=== PATIENT | male | born 1945 | race Caucasian/White ===

== ENCOUNTER 2017-10-03 12:29 | Outpatient (CLI) | payer MEDICARE | END 2017-10-03 12:30 | disposition home or self-care (01) | LOC: BICRAD 12:29 | PROVIDERS: ATTEND Family Medicine | DX: R07.9 Chest pain, unspecified (principal) | CPT/HCPCS: 71020 ==

== ENCOUNTER 2021-10-27 16:28 | Emergency (ER) | payer MEDICARE | END 2021-10-27 19:21 | disposition left against medical advice (07) | LOC: ERS 16:28 | DX: Z53.21 Procedure and treatment not carried out due to patient leaving prior to being seen by health care provider (principal) ==

== ENCOUNTER 2021-11-02 11:22 | Inpatient (IN) | payer MEDICARE, OTHER ==
[2021-11-02 12:30] LABS: Hemoglobin 9.6 g/dL (14.0-18.0); Mean Corpuscular HGB CONC 32.5 g/dL (32.0-36.0); Mean Corpuscular Hemoglobin 32.6 pg (27.0-31.0); Mean Platelet Volume 9.9 fL (7.4-10.4); Platelet Count 161 thou/uL (130-400); Red Blood Cell (RBC) Count 2.94 mill/uL (4.70-6.10); White Blood Cell (WBC) Count 2.6 thou/uL (4.8-10.8)
[2021-11-02] MEDS ORDERED: Ondansetron PF 4 MG/2 ML Vial ONE (12:35)
[2021-11-02 12:50] LABS: Band 52 % (5-11); Bite Cells SLIGHT = 2-5 cells (100X) (0-1/hpf); Eosinophils 2 % (0-10); Lymphocytes 10 % (21-51); MDiff Complete? YES; Monocytes 14 % (0-10); Neutrophil 20 % (42-75); Platelet Morphology Comment Appears Adequate; Polychromasia SLIGHT = 2-3 cells (100X) (0-2/hpf); Reactive Lymphocytes 2 % (0-10); Schistocytes SLIGHT = 2-5 cells (100X) (0-1/hpf)
[2021-11-02 13:46] LABS: ALT (SGPT) 7 U/L (8-55); AST (SGOT) 12 U/L (5-34); Albumin 2.9 g/dL (3.4-4.8); Alkaline Phosphatase 84 U/L (40-110); Anion Gap 19 mmol/L (10-20); BUN (Urea Nitrogen) 48 mg/dL (8.4-25.7); Bilirubin, Total 0.9 mg/dL (0.2-1.2); Calc. Creatinine Clearance 0 mL/min (70-130); Calcium 9.1 mg/dL (7.8-10.44); Carbon Dioxide 10 mmol/L (23-31); Chloride 109 mmol/L (98-107); Globulin 3.3 g/dL (2.4-3.5); Glucose 135 mg/dL (83-110); Lipase 14 U/L (8-78); Protein, Total 6.2 g/dL (5.8-8.1); Sodium 136 mmol/L (136-145)
[2021-11-02 13:47] LABS: CK (CPK) 34 U/L (30-200); Magnesium 2.5 mg/dL (1.6-2.6)
[2021-11-02 13:56] LABS: Potassium 2.1 mmol/L (3.5-5.1)
[2021-11-02] MEDS ORDERED: Magnesium 2 GM/50 ML BAG (IN WATER) ONE (14:55)
[2021-11-02] MEDS ORDERED: Potassium Chloride 20 MEQ in Premix Bag 1 BAG IVPB SCH (15:00)
[2021-11-02] MEDS: Potassium Chloride 40 MEQ in Sodium Chloride 0.9% 250 ML 250 ML IV SCH ×2 (15:50→17:50)
[2021-11-02] MEDS ORDERED: HYDROcodone/Acetaminophen 5/325 mg Tablet PO PRN (16:15)
[2021-11-02] MEDS ORDERED: Acetaminophen 325 MG TAB PO PRN (16:15)
[2021-11-02] MEDS ORDERED: Ondansetron PF 4 MG/2 ML Vial IVP PRN (16:15)
[2021-11-02 16:28] LABS: SARS-CoV-2 NAA Rapid Test Not Detected (NotDetected)
[2021-11-02] MEDS ORDERED: Lidocaine Viscous Sol 2% 15 ml UD Cup ONE (17:38)
[2021-11-02] MEDS: Sodium Bicarbonate 75 MEQ in D5 1/2 NS w/20 mEq KCL 1,000 ML IV SCH (17:56)
[2021-11-02] MEDS: Famotidine/PF 20 mg/2ml Vial SLOW IVP SCH (21:03)
[2021-11-02] MEDS ORDERED: Cholestyramine/Aspartame 4 gm Packet PO SCH (22:00)
[2021-11-02] MEDS: Aluminum & Magnesium Hydroxide 60 ML, diphenhydrAMINE 150 MG, Lidocaine 2% Viscous Solu... SSW SCH ×2 (22:58→23:54)
[2021-11-02 23:23] LABS: Anion Gap 16 mmol/L (10-20); BUN (Urea Nitrogen) 47 mg/dL (8.4-25.7); Calc. Creatinine Clearance 0 mL/min (70-130); Calcium 8.7 mg/dL (7.8-10.44); Carbon Dioxide 13 mmol/L (23-31); Chloride 114 mmol/L (98-107); Glucose 120 mg/dL (83-110); Sodium 140 mmol/L (136-145)
[2021-11-02 23:38] LABS: Potassium 2.8 mmol/L (3.5-5.1)
[2021-11-03] MEDS ORDERED: Potassium Chloride 20 MEQ TAB ONE ×4 (00:30→09:10)
[2021-11-03] MEDS: Potassium Chloride 20 MEQ TAB PO SCH ×2 (00:34→02:43)
[2021-11-03] MEDS: Sodium Bicarbonate 75 MEQ in D5 1/2 NS w/20 mEq KCL 1,000 ML IV SCH ×2 (03:49→14:49)
[2021-11-03 08:12] LABS: Hemoglobin 9.3 g/dL (14.0-18.0); Mean Corpuscular HGB CONC 32.2 g/dL (32.0-36.0); Mean Corpuscular Hemoglobin 32.8 pg (27.0-31.0); Mean Platelet Volume 9.8 fL (7.4-10.4); Platelet Count 150 thou/uL (130-400); RBC Distribution Width 14.9 % (11.5-14.5); Red Blood Cell (RBC) Count 2.84 mill/uL (4.70-6.10); White Blood Cell (WBC) Count 2.7 thou/uL (4.8-10.8)
[2021-11-03 08:21] LABS: ALT (SGPT) 8 U/L (8-55); AST (SGOT) 14 U/L (5-34); Albumin 2.7 g/dL (3.4-4.8); Alkaline Phosphatase 92 U/L (40-110); Anion Gap 12 mmol/L (10-20); BUN (Urea Nitrogen) 45 mg/dL (8.4-25.7); Bilirubin, Total 0.7 mg/dL (0.2-1.2); Calc. Creatinine Clearance 0 mL/min (70-130); Calcium 8.5 mg/dL (7.8-10.44); Carbon Dioxide 17 mmol/L (23-31); Chloride 113 mmol/L (98-107); Glucose 135 mg/dL (83-110); Magnesium 2.9 mg/dL (1.6-2.6); Phosphorus 3.2 mg/dL (2.3-4.7); Protein, Total 5.7 g/dL (5.8-8.1); Sodium 139 mmol/L (136-145)
[2021-11-03 08:25] LABS: Potassium 2.6 mmol/L (3.5-5.1)
[2021-11-03] MEDS ORDERED: Potassium Chloride 20 MEQ TAB PO SCH ×2 (08:45→21:00)
[2021-11-03] MEDS ORDERED: Potassium Chloride 40 MEQ in Premix Bag 1 BAG IVPB SCH (08:45)
[2021-11-03] MEDS ORDERED: Potassium Chloride 20 MEQ/100 ML PREMIX BAG ONE ×2 (09:10→11:42)
[2021-11-03] MEDS: Cholestyramine/Aspartame 4 gm Packet PO SCH ×4 (09:23→20:23)
[2021-11-03 09:27] LABS: MDiff Complete? YES
[2021-11-03 09:28] LABS: Band 45 % (5-11); Eosinophils 1 % (0-10); Lymphocytes 16 % (21-51); Monocytes 17 % (0-10); Neutrophil 20 % (42-75); Platelet Morphology Comment Appears Adequate; Polychromasia SLIGHT = 2-3 cells (100X) (0-2/hpf); Schistocytes MODERATE= 6-15 cells (100X) (0-1/hpf)
[2021-11-03] MEDS: Aluminum & Magnesium Hydroxide 60 ML, diphenhydrAMINE 150 MG, Lidocaine 2% Viscous Solu... SSW SCH ×4 (11:59→20:23)
[2021-11-03] MEDS: Diphenoxylate HCl/Atropine Tablet PO PRN ×2 (15:24→23:40)
[2021-11-03] MEDS: [UNRECOGNIZED DRUG - OTHER] IV SCH (15:24)
[2021-11-03] MEDS: SODIUM BICARBONATE IV SCH (15:24)
[2021-11-03] MEDS: POTASSIUM CHLORIDE IV SCH (15:24)
[2021-11-03 15:44] LABS: Anion Gap 12 mmol/L (10-20); BUN (Urea Nitrogen) 42 mg/dL (8.4-25.7); Calc. Creatinine Clearance 29 mL/min (70-130); Calcium 8.7 mg/dL (7.8-10.44); Carbon Dioxide 14 mmol/L (23-31); Chloride 115 mmol/L (98-107); Glucose 111 mg/dL (83-110); Sodium 138 mmol/L (136-145)
[2021-11-03] MEDS: Famotidine/PF 20 mg/2ml Vial SLOW IVP SCH (20:23)
[2021-11-03] MEDS ORDERED: Potassium Chloride 20 MEQ in Premix Bag 2 BAG IVPB SCH (22:30)
[2021-11-03] MEDS: Potassium Chloride 20 MEQ in Premix Bag 1 BAG IVPB SCH (22:37)
[2021-11-03 23:59] LABS: Bacteria/HPF None Seen HPF (None Seen); Bilirubin Negative (Negative); Blood, Urine 1+ (Negative); Clarity Clear (Clear); Glucose, Urine (Dipstick) Normal (Negative); Ketone, Urine Negative (Negative); Leukocyte Negative Leu/uL (Negative); Nitrite Negative (Negative); Protein, Urine (Dipstick) 50 mg/dL (Neg-Trace); RBC/HPF 0-3 HPF (0-3); Specific Gravity, Urine 1.018 (1.002-1.036); Squamous Epithelial None Seen HPF (0-3); Urobilinogen Normal mg/dL (Less than 2); WBC/HPF 0-3 HPF (0-3)
[2021-11-04 00:02] LABS: Urine Culture Reflex No No
[2021-11-04] MEDS: Potassium Chloride 20 MEQ in Premix Bag 1 BAG IVPB SCH (01:26)
[2021-11-04] MEDS: POTASSIUM CHLORIDE IV SCH ×3 (05:27→20:40)
[2021-11-04] MEDS: [UNRECOGNIZED DRUG - OTHER] IV SCH ×3 (05:27→20:40)
[2021-11-04] MEDS: SODIUM BICARBONATE IV SCH ×3 (05:27→20:40)
[2021-11-04 05:46] LABS: Hemoglobin 9.2 g/dL (14.0-18.0); Mean Corpuscular HGB CONC 32.6 g/dL (32.0-36.0); Mean Corpuscular Hemoglobin 33.2 pg (27.0-31.0); Platelet Count 156 thou/uL (130-400); RBC Distribution Width 14.9 % (11.5-14.5); Red Blood Cell (RBC) Count 2.78 mill/uL (4.70-6.10); White Blood Cell (WBC) Count 2.3 thou/uL (4.8-10.8)
[2021-11-04 05:54] LABS: ALT (SGPT) 8 U/L (8-55); AST (SGOT) 12 U/L (5-34); Albumin 2.5 g/dL (3.4-4.8); Alkaline Phosphatase 91 U/L (40-110); Anion Gap 12 mmol/L (10-20); BUN (Urea Nitrogen) 32 mg/dL (8.4-25.7); Calc. Creatinine Clearance 38 mL/min (70-130); Calcium 8.4 mg/dL (7.8-10.44); Carbon Dioxide 12 mmol/L (23-31); Chloride 115 mmol/L (98-107); Globulin 2.9 g/dL (2.4-3.5); Glucose 97 mg/dL (83-110); Protein, Total 5.4 g/dL (5.8-8.1); Sodium 136 mmol/L (136-145)
[2021-11-04 06:00] LABS: Band 44 % (5-11); Eosinophils 2 % (0-10); Lymphocytes 25 % (21-51); MDiff Complete? YES; Monocytes 9 % (0-10); Neutrophil 20 % (42-75)
[2021-11-04] MEDS: Cholestyramine/Aspartame 4 gm Packet PO SCH ×4 (10:33→20:42)
[2021-11-04] MEDS: Folic Acid 1 MG TAB PO SCH (10:33)
[2021-11-04] MEDS: Aluminum & Magnesium Hydroxide 60 ML, diphenhydrAMINE 150 MG, Lidocaine 2% Viscous Solu... SSW SCH ×4 (11:33→20:43)
[2021-11-04] MEDS ORDERED: Potassium Chloride 20 MEQ TAB PO SCH (11:45)
[2021-11-04] MEDS ORDERED: Sodium Bicarbonate Tab 325 MG TAB PO SCH (14:15)
[2021-11-04] MEDS: Famotidine/PF 20 mg/2ml Vial SLOW IVP SCH (20:45)
[2021-11-04] MEDS: Sodium Bicarbonate Tab 325 MG TAB PO SCH (20:51)
[2021-11-05 05:49] LABS: ALT (SGPT) 7 U/L (8-55); AST (SGOT) 14 U/L (5-34); Albumin 2.2 g/dL (3.4-4.8); Alkaline Phosphatase 99 U/L (40-110); Anion Gap 8 mmol/L (10-20); BUN (Urea Nitrogen) 21 mg/dL (8.4-25.7); Bilirubin, Total 0.8 mg/dL (0.2-1.2); Calc. Creatinine Clearance 45 mL/min (70-130); Calcium 8.2 mg/dL (7.8-10.44); Carbon Dioxide 17 mmol/L (23-31); Chloride 117 mmol/L (98-107); Globulin 2.5 g/dL (2.4-3.5); Glucose 121 mg/dL (83-110); Protein, Total 4.7 g/dL (5.8-8.1); Sodium 139 mmol/L (136-145)
[2021-11-05 05:52] LABS: Potassium 2.7 mmol/L (3.5-5.1)
[2021-11-05 06:02] VITALS: BMI 18.6
[2021-11-05] MEDS ORDERED: Electrolyte Replacement Protocol FS PRN (06:30)
[2021-11-05 06:35] LABS: Anisocytosis SLIGHT = 6-15 cells (100X) (0-5/hpf); Band 30 % (5-11); Burr Cells SLIGHT = 2-5 cells (100X) (0-1/hpf); Eosinophils 1 % (0-10); Hemoglobin 8.4 g/dL (14.0-18.0); Large Platelets SLIGHT; Lymphocytes 16 % (21-51); MDiff Complete? YES; Mean Corpuscular HGB CONC 33.4 g/dL (32.0-36.0); Mean Corpuscular Hemoglobin 34.2 pg (27.0-31.0); Mean Platelet Volume 9.9 fL (7.4-10.4); Monocytes 11 % (0-10); Myelocyte 1 % (0-0); Neutrophil 41 % (42-75); Platelet Count 118 thou/uL (130-400); Platelet Morphology Comment Appears Decreased; Polychromasia SLIGHT = 2-3 cells (100X) (0-2/hpf); RBC Distribution Width 14.7 % (11.5-14.5); Red Blood Cell (RBC) Count 2.46 mill/uL (4.70-6.10); Schistocytes MODERATE= 6-15 cells (100X) (0-1/hpf); Tear Drops SLIGHT = 2-5 cells (100X) (0-1/hpf); White Blood Cell (WBC) Count 3.1 thou/uL (4.8-10.8)
[2021-11-05] MEDS: POTASSIUM CHLORIDE IV SCH (09:00)
[2021-11-05] MEDS: [UNRECOGNIZED DRUG - OTHER] IV SCH (09:00)
[2021-11-05] MEDS: SODIUM BICARBONATE IV SCH (09:00)
[2021-11-05] MEDS: Sodium Bicarbonate Tab 325 MG TAB PO SCH ×2 (09:07→20:54)
[2021-11-05] MEDS: Potassium Chloride 20 MEQ TAB PO SCH ×2 (09:07→11:25)
[2021-11-05] MEDS: Cholestyramine/Aspartame 4 gm Packet PO SCH ×4 (09:08→20:49)
[2021-11-05] MEDS: Folic Acid 1 MG TAB PO SCH (09:56)
[2021-11-05] MEDS: Aluminum & Magnesium Hydroxide 60 ML, diphenhydrAMINE 150 MG, Lidocaine 2% Viscous Solu... SSW SCH ×4 (09:56→21:00)
[2021-11-05] MEDS ORDERED: Loperamide HCl 2 MG CAP PO PRN (13:22)
[2021-11-05] MEDS ORDERED: Chloraseptic Spray 180 ml Bottle PO PRN (13:27)
[2021-11-05 13:58] LABS: Anion Gap 11 mmol/L (10-20); BUN (Urea Nitrogen) 19 mg/dL (8.4-25.7); Calc. Creatinine Clearance 50 mL/min (70-130); Calcium 8.1 mg/dL (7.8-10.44); Carbon Dioxide 15 mmol/L (23-31); Chloride 114 mmol/L (98-107); Glucose 123 mg/dL (83-110); Potassium 3.1 mmol/L (3.5-5.1); Sodium 137 mmol/L (136-145)
[2021-11-05] MEDS ORDERED: Loperamide HCl 2 MG CAP PO SCH (14:00)
[2021-11-05] MEDS ORDERED: Potassium Chloride 40 MEQ in Sodium Chloride 0.9% 250 ML 250 ML IVPB SCH (16:45)
[2021-11-05] MEDS: Famotidine/PF 20 mg/2ml Vial SLOW IVP SCH (21:03)
[2021-11-06] MEDS: POTASSIUM CHLORIDE IV SCH ×3 (00:17→11:47)
[2021-11-06] MEDS: SODIUM BICARBONATE IV SCH ×3 (00:17→11:47)
[2021-11-06] MEDS: [UNRECOGNIZED DRUG - OTHER] IV SCH ×3 (00:17→11:47)
[2021-11-06 06:37] LABS: #Eosinphils 0.1 thou/uL (0.0-0.7); #Lymphocytes 0.7 thou/uL (1.20-3.40); #Monocytes 0.4 thou/uL (0.11-0.59); #Neutrophils 2.5 thou/uL (1.40-6.50); %Basophils 0.3 % (0.0-1.0); %Eosinophils 1.5 % (0.0-10.0); %Lymphocytes 18.5 % (21.0-51.0); %Monocytes 11.3 % (0.0-10.0); %Neutrophils 68.4 % (42.0-75.0); Hemoglobin 8.1 g/dL (14.0-18.0); Mean Corpuscular HGB CONC 32.9 g/dL (32.0-36.0); Mean Corpuscular Hemoglobin 33.3 pg (27.0-31.0); Mean Platelet Volume 10.1 fL (7.4-10.4); Platelet Count 111 thou/uL (130-400); Red Blood Cell (RBC) Count 2.42 mill/uL (4.70-6.10); White Blood Cell (WBC) Count 3.6 thou/uL (4.8-10.8)
[2021-11-06 06:58] LABS: ALT (SGPT) 11 U/L (8-55); AST (SGOT) 15 U/L (5-34); Albumin 1.8 g/dL (3.4-4.8); Alkaline Phosphatase 124 U/L (40-110); Anion Gap 10 mmol/L (10-20); BUN (Urea Nitrogen) 16 mg/dL (8.4-25.7); Bilirubin, Total 0.6 mg/dL (0.2-1.2); Calc. Creatinine Clearance 51 mL/min (70-130); Calcium 7.5 mg/dL (7.8-10.44); Carbon Dioxide 16 mmol/L (23-31); Chloride 114 mmol/L (98-107); Globulin 2.4 g/dL (2.4-3.5); Glucose 141 mg/dL (83-110); Potassium 3.3 mmol/L (3.5-5.1); Protein, Total 4.2 g/dL (5.8-8.1); Sodium 137 mmol/L (136-145)
[2021-11-06] MEDS ORDERED: Potassium Chloride 20 MEQ TAB PO SCH (08:30)
[2021-11-06] MEDS: Aluminum & Magnesium Hydroxide 60 ML, diphenhydrAMINE 150 MG, Lidocaine 2% Viscous Solu... SSW SCH ×4 (08:53→22:28)
[2021-11-06] MEDS: Cholestyramine/Aspartame 4 gm Packet PO SCH ×4 (08:54→22:29)
[2021-11-06] MEDS: Folic Acid 1 MG TAB PO SCH (08:54)
[2021-11-06] MEDS: Sodium Bicarbonate Tab 325 MG TAB PO SCH ×2 (08:54→22:28)
[2021-11-06] MEDS ORDERED: Famotidine/PF 20 mg/2ml Vial SLOW IVP SCH (10:00)
[2021-11-06] MEDS: Famotidine/PF 20 mg/2ml Vial SLOW IVP SCH (22:29)
[2021-11-07] MEDS: SODIUM BICARBONATE IV SCH (04:37)
[2021-11-07] MEDS: POTASSIUM CHLORIDE IV SCH (04:37)
[2021-11-07] MEDS: [UNRECOGNIZED DRUG - OTHER] IV SCH (04:37)
[2021-11-07 07:13] LABS: #Eosinphils 0.1 thou/uL (0.0-0.7); #Lymphocytes 0.6 thou/uL (1.20-3.40); #Monocytes 0.4 thou/uL (0.11-0.59); #Neutrophils 2.9 thou/uL (1.40-6.50); %Basophils 0.4 % (0.0-1.0); %Eosinophils 1.3 % (0.0-10.0); %Lymphocytes 13.9 % (21.0-51.0); %Monocytes 10.9 % (0.0-10.0); %Neutrophils 73.5 % (42.0-75.0); Hemoglobin 8.6 g/dL (14.0-18.0); Mean Corpuscular HGB CONC 33.7 g/dL (32.0-36.0); Mean Corpuscular Hemoglobin 34.3 pg (27.0-31.0); Mean Platelet Volume 9.5 fL (7.4-10.4); Platelet Count 107 thou/uL (130-400); RBC Distribution Width 14.9 % (11.5-14.5); Red Blood Cell (RBC) Count 2.51 mill/uL (4.70-6.10)
[2021-11-07 07:30] LABS: ALT (SGPT) 11 U/L (8-55); AST (SGOT) 16 U/L (5-34); Albumin 1.9 g/dL (3.4-4.8); Alkaline Phosphatase 128 U/L (40-110); Anion Gap 7 mmol/L (10-20); BUN (Urea Nitrogen) 13 mg/dL (8.4-25.7); Bilirubin, Total 0.5 mg/dL (0.2-1.2); Calc. Creatinine Clearance 63 mL/min (70-130); Calcium 7.2 mg/dL (7.8-10.44); Carbon Dioxide 23 mmol/L (23-31); Chloride 109 mmol/L (98-107); Globulin 2.2 g/dL (2.4-3.5); Glucose 102 mg/dL (83-110); Magnesium 1.7 mg/dL (1.6-2.6); Potassium 3.7 mmol/L (3.5-5.1); Protein, Total 4.1 g/dL (5.8-8.1); Sodium 135 mmol/L (136-145)
[2021-11-07] MEDS ORDERED: Dextrose 5 %-0.45 % NaCl 1,000 ML IV SCH (08:15)
[2021-11-07] MEDS ORDERED: Magnesium 2 GM/50 ML 2 GM in Premix Bag 1 BAG IVPB SCH (09:00)
[2021-11-07] MEDS ORDERED: Enoxaparin Sodium 30 MG/0.3 ML SYRINGE SC SCH (09:00)
[2021-11-07] MEDS: Sodium Bicarbonate Tab 325 MG TAB PO SCH (09:58)
[2021-11-07] MEDS: Cholestyramine/Aspartame 4 gm Packet PO SCH ×2 (09:58→13:30)
[2021-11-07] MEDS: Aluminum & Magnesium Hydroxide 60 ML, diphenhydrAMINE 150 MG, Lidocaine 2% Viscous Solu... SSW SCH ×2 (09:59→13:30)
[2021-11-07] MEDS: Famotidine/PF 20 mg/2ml Vial SLOW IVP SCH (10:00)
[2021-11-07] MEDS: Folic Acid 1 MG TAB PO SCH (10:00)
[2021-11-07 12:16] VITALS: TEMP 97.6
[2021-11-07 13:10] VITALS: BP 165/76
== END 2021-11-07 15:07 | disposition home or self-care (01) | DRG 393 ==
LOC: ERS 11:22 → ERHOLD 15:27 → UNDOADMIN 17:43 → ERHOLD 17:43 → 2NO 11-03 14:51
PROVIDERS: ADMIT Internal Medicine; ATTEND Internal Medicine
DX: K52.1 Toxic gastroenteritis and colitis (principal); Z20.822 Contact with and (suspected) exposure to COVID-19; D61.810 Antineoplastic chemotherapy induced pancytopenia; N17.9 Acute kidney failure, unspecified; E87.2 Acidosis; C23 Malignant neoplasm of gallbladder; R11.2 Nausea with vomiting, unspecified; T45.1X5A Adverse effect of antineoplastic and immunosuppressive drugs, initial encounter; E87.6 Hypokalemia; K12.31 Oral mucositis (ulcerative) due to antineoplastic therapy; E86.9 Volume depletion, unspecified; Z88.8 Allergy status to other drugs, medicaments and biological substances; Z90.49 Acquired absence of other specified parts of digestive tract; Z79.899 Other long term (current) drug therapy
CPT/HCPCS: 36415; 71045; 80053; 81001; 82550; 82607; 82746; 83690; 83735; 84100; 85025; 87324; 87449; 93005; J1642; J1650; J2405; J3475; J3480; J7042; J7050; Q0163; S0028; U0002

== ENCOUNTER 2022-05-13 19:34 | Inpatient (IN) | payer MEDICARE, OTHER ==
[2022-05-13 21:01] LABS: ALT (SGPT) 17 U/L (8-55); AST (SGOT) 20 U/L (5-34); Albumin 2.8 g/dL (3.4-4.8); Alkaline Phosphatase 301 U/L (40-110); Anion Gap 16 mmol/L (10-20); BUN (Urea Nitrogen) 64 mg/dL (8.4-25.7); Bilirubin, Total 1.5 mg/dL (0.2-1.2); Calc. Creatinine Clearance 0 mL/min (70-130); Calcium 8.4 mg/dL (7.8-10.44); Carbon Dioxide 17 mmol/L (23-31); Chloride 97 mmol/L (98-107); Estimated GFR 19; Globulin 2.8 g/dL (2.4-3.5); Glucose 121 mg/dL (83-110); Protein, Total 5.6 g/dL (5.8-8.1); Sodium 125 mmol/L (136-145)
[2022-05-13 21:05] LABS: Hemoglobin 9.3 g/dL (14.0-18.0); Mean Corpuscular HGB CONC 32.5 g/dL (32.0-36.0); Mean Corpuscular Hemoglobin 31.8 pg (27.0-31.0); Mean Corpuscular Volume 97.7 fL (78.0-98.0); Mean Platelet Volume 10.7 fL (7.4-10.4); Platelet Count 66 thou/uL (130-400); RBC Distribution Width 14.6 % (11.5-14.5); Red Blood Cell (RBC) Count 2.92 mill/uL (4.70-6.10); White Blood Cell (WBC) Count 19.1 thou/uL (4.8-10.8)
[2022-05-13 21:06] LABS: Anisocytosis SLIGHT = 6-15 cells (100X) (0-5/hpf); Band 13 % (5-11); Lymphocytes 6 % (21-51); MDiff Complete? YES; Monocytes 1 % (0-10); Neutrophil 80 % (42-75); Platelet Morphology Comment Appears Decreased
[2022-05-13 21:12] LABS: Bilirubin Negative (Negative); Blood, Urine Negative (Negative); Clarity Clear (Clear); Glucose, Urine (Dipstick) Normal (Negative); Ketone, Urine Negative (Negative); Leukocyte Negative Leu/uL (Negative); Nitrite Negative (Negative); Protein, Urine (Dipstick) Negative (Neg-Trace); Specific Gravity, Urine 1.008 (1.002-1.036); Urobilinogen Normal mg/dL (Less than 2)
[2022-05-13 22:16] LABS: CKMB 3.2 ng/mL (0-6.6)
[2022-05-13] MEDS ORDERED: Piperacillin/Tazobactam 4.5 GM VIAL ONE (22:25)
[2022-05-14] MEDS ORDERED: Sodium Chloride 0.9% 1,000 ML IV SCH (00:45)
[2022-05-14] MEDS ORDERED: Ondansetron PF 4 MG/2 ML Vial IVP PRN (00:45)
[2022-05-14] MEDS ORDERED: Acetaminophen 325 MG TAB PO PRN (00:45)
[2022-05-14] MEDS ORDERED: Ondansetron ODT 4 MG TAB SL PRN (00:45)
[2022-05-14] MEDS ORDERED: HYDROcodone/Acetaminophen 10/325 mg Tablet PO PRN (01:59)
[2022-05-14 04:23] LABS: #Lymphocytes 1.3 thou/uL (1.20-3.40); #Monocytes 0.6 thou/uL (0.11-0.59); #Neutrophils 12.1 thou/uL (1.40-6.50); %Basophils 0.1 % (0.0-1.0); %Eosinophils 0.1 % (0.0-10.0); %Lymphocytes 9.4 % (21.0-51.0); %Monocytes 3.9 % (0.0-10.0); %Neutrophils 86.5 % (42.0-75.0); Mean Corpuscular HGB CONC 32.7 g/dL (32.0-36.0); Mean Corpuscular Volume 97.8 fL (78.0-98.0); Mean Platelet Volume 9.9 fL (7.4-10.4); Platelet Count 54 thou/uL (130-400); RBC Distribution Width 14.5 % (11.5-14.5); Red Blood Cell (RBC) Count 2.82 mill/uL (4.70-6.10)
[2022-05-14 04:31] LABS: Anion Gap 12 mmol/L (10-20); BUN (Urea Nitrogen) 63 mg/dL (8.4-25.7); Calc. Creatinine Clearance 19 mL/min (70-130); Calcium 8.2 mg/dL (7.8-10.44); Carbon Dioxide 20 mmol/L (23-31); Chloride 99 mmol/L (98-107); Estimated GFR 20; Glucose 85 mg/dL (83-110); Potassium 4.3 mmol/L (3.5-5.1); Sodium 127 mmol/L (136-145)
[2022-05-14] MEDS: Morphine 2 MG/ML VIAL SLOW IVP PRN ×2 (09:58→20:14)
[2022-05-14 12:53] LABS: Bilirubin Negative (Negative); Blood, Urine Negative (Negative); Clarity Clear (Clear); Glucose, Urine (Dipstick) Normal (Negative); Ketone, Urine Negative (Negative); Leukocyte Negative Leu/uL (Negative); Nitrite Negative (Negative); Protein, Urine (Dipstick) Negative (Neg-Trace); RBC/HPF None Seen HPF (0-3); Specific Gravity, Urine 1.007 (1.002-1.036); Squamous Epithelial None Seen HPF (0-3); Urobilinogen Normal mg/dL (Less than 2); WBC/HPF 0-3 HPF (0-3)
[2022-05-14 12:55] LABS: Bacteria/HPF Rare-Few HPF (None Seen)
[2022-05-14] MEDS: oxyCODONE 5 MG TAB PO PRN (13:41)
[2022-05-14 14:00] LABS: #Lymphocytes 0.9 thou/uL (1.20-3.40); #Monocytes 0.6 thou/uL (0.11-0.59); #Neutrophils 9.7 thou/uL (1.40-6.50); %Basophils 0.2 % (0.0-1.0); %Eosinophils 0.2 % (0.0-10.0); %Lymphocytes 8.4 % (21.0-51.0); %Monocytes 5.3 % (0.0-10.0); %Neutrophils 85.9 % (42.0-75.0); Hemoglobin 9.5 g/dL (14.0-18.0); Mean Corpuscular HGB CONC 31.9 g/dL (32.0-36.0); Mean Corpuscular Hemoglobin 31.2 pg (27.0-31.0); Mean Corpuscular Volume 97.8 fL (78.0-98.0); Mean Platelet Volume 10.2 fL (7.4-10.4); Platelet Count 55 thou/uL (130-400); RBC Distribution Width 14.6 % (11.5-14.5); Red Blood Cell (RBC) Count 3.05 mill/uL (4.70-6.10); White Blood Cell (WBC) Count 11.2 thou/uL (4.8-10.8)
[2022-05-14] MEDS ORDERED: Lorazepam 2 MG/ML VIAL IM PRN (14:40)
[2022-05-14] MEDS ORDERED: Electrolyte Replacement Protocol 1 EACH FS SCH (14:45)
[2022-05-14] MEDS ORDERED: Dextrose 50% Abboject 50 ML SYRINGE ONE (17:12)
[2022-05-14] MEDS ORDERED: Vancomycin 1 GM in Premix Bag 1 BAG IVPB SCH (17:21)
[2022-05-14 17:39] LABS: Troponin I 0.031 ng/mL (< 0.028)
[2022-05-14] MEDS ORDERED: Diltiazem 125 MG in Sodium Chloride 0.9% 100 ML IVPB SCH (18:15)
[2022-05-14 18:42] LABS: Hemoglobin 10.7 g/dL (14.0-18.0); Mean Corpuscular HGB CONC 33.5 g/dL (32.0-36.0); Mean Corpuscular Hemoglobin 31.9 pg (27.0-31.0); Mean Platelet Volume 9.9 fL (7.4-10.4); Platelet Count 57 thou/uL (130-400); RBC Distribution Width 14.5 % (11.5-14.5); Red Blood Cell (RBC) Count 3.37 mill/uL (4.70-6.10); White Blood Cell (WBC) Count 10.3 thou/uL (4.8-10.8)
[2022-05-14 18:57] LABS: Band 14 % (5-11); Lymphocytes 1 % (21-51); MDiff Complete? YES; Neutrophil 84 % (42-75); Ovalocytes SLIGHT = 2-5 cells (100X) (0-1/hpf); Platelet Morphology Comment Appears Decreased; Polychromasia SLIGHT = 2-3 cells (100X) (0-2/hpf); Reactive Lymphocytes 1 % (0-10)
[2022-05-14] MEDS ORDERED: VANCOMYCIN 1.25 GM/250 ML BAG 1.25 GM in Premix Bag 1 BAG IVPB SCH (19:00)
[2022-05-14] MEDS ORDERED: [UNRECOGNIZED DRUG - REMARK] FS SCH (19:00)
[2022-05-14] MEDS: Cefepime 1 GM in Sodium Chloride 0.9% 100 ML IVPB SCH (19:07)
[2022-05-14 20:38] LABS: Lactic Acid 1.7 mmol/L (0.5-2.2)
[2022-05-14] MEDS ORDERED: Diltiazem HCl 125 MG in Premix Bag 1 BAG IVPB SCH (21:00)
[2022-05-15 04:13] LABS: ALT (SGPT) 13 U/L (8-55); AST (SGOT) 16 U/L (5-34); Albumin 2.3 g/dL (3.4-4.8); Alkaline Phosphatase 254 U/L (40-110); Anion Gap 14 mmol/L (10-20); BUN (Urea Nitrogen) 57 mg/dL (8.4-25.7); Bilirubin, Total 1.5 mg/dL (0.2-1.2); Calc. Creatinine Clearance 22 mL/min (70-130); Calcium 8.1 mg/dL (7.8-10.44); Carbon Dioxide 19 mmol/L (23-31); Chloride 104 mmol/L (98-107); Estimated GFR 24; Globulin 2.5 g/dL (2.4-3.5); Glucose 75 mg/dL (83-110); Potassium 4.5 mmol/L (3.5-5.1); Protein, Total 4.8 g/dL (5.8-8.1); Sodium 132 mmol/L (136-145)
[2022-05-15 04:53] LABS: Band 15 % (5-11); Hemoglobin 9.2 g/dL (14.0-18.0); MDiff Complete? YES; Mean Corpuscular HGB CONC 33.1 g/dL (32.0-36.0); Mean Corpuscular Hemoglobin 32.1 pg (27.0-31.0); Mean Platelet Volume 9.7 fL (7.4-10.4); Monocytes 1 % (0-10); Neutrophil 84 % (42-75); Platelet Count 56 thou/uL (130-400); Platelet Morphology Comment Appears Decreased; RBC Distribution Width 14.7 % (11.5-14.5); Red Blood Cell (RBC) Count 2.87 mill/uL (4.70-6.10); White Blood Cell (WBC) Count 24.4 thou/uL (4.8-10.8)
[2022-05-15] MEDS: oxyCODONE 5 MG TAB PO PRN (06:05)
[2022-05-15] MEDS: Cefepime 1 GM in Sodium Chloride 0.9% 100 ML IVPB SCH ×2 (06:05→17:28)
[2022-05-15] MEDS: Morphine 2 MG/ML VIAL SLOW IVP PRN (08:31)
[2022-05-15] MEDS ORDERED: Multivit, Therapeutic 1 TAB PO SCH (09:00)
[2022-05-15] MEDS ORDERED: Folic Acid 1 MG TAB PO SCH (09:00)
[2022-05-15] MEDS ORDERED: Amlodipine 10 MG TAB PO SCH (09:00)
[2022-05-15] MEDS ORDERED: LACTASE 9000 UNIT PO PRN (12:20)
[2022-05-15] MEDS: Senokot S 8.6-50 MG TAB PO PRN (14:29)
[2022-05-15] MEDS ORDERED: Lorazepam 1 MG TAB PO PRN (14:40)
[2022-05-15] MEDS ORDERED: Thiamine 100 MG TAB PO SCH (14:45)
[2022-05-15] MEDS ORDERED: Bisacodyl 10 MG SUPP PR SCH (17:15)
[2022-05-15] MEDS ORDERED: Polyethylene Glycol 3350 17 GM Packet PO SCH (17:15)
[2022-05-15 19:13] LABS: Vancomycin, Random 8.6 ug/mL (See Comment)
[2022-05-15] MEDS: HYDROcodone/Acetaminophen 10/325 mg Tablet PO PRN (20:56)
[2022-05-15] MEDS: Senokot S 8.6-50 MG TAB PO SCH (20:56)
[2022-05-15] MEDS ORDERED: Senokot S 8.6-50 MG TAB PO SCH (21:00)
[2022-05-15] MEDS ORDERED: Vancomycin 1 GM in Premix Bag 1 BAG IVPB SCH (21:00)
[2022-05-16] MEDS: HYDROcodone/Acetaminophen 10/325 mg Tablet PO PRN ×3 (04:11→14:57)
[2022-05-16 04:34] LABS: ALT (SGPT) 14 U/L (8-55); AST (SGOT) 21 U/L (5-34); Albumin 2.1 g/dL (3.4-4.8); Alkaline Phosphatase 247 U/L (40-110); Anion Gap 12 mmol/L (10-20); BUN (Urea Nitrogen) 42 mg/dL (8.4-25.7); Bilirubin, Total 1.2 mg/dL (0.2-1.2); Calc. Creatinine Clearance 29 mL/min (70-130); Calcium 7.9 mg/dL (7.8-10.44); Carbon Dioxide 19 mmol/L (23-31); Chloride 106 mmol/L (98-107); Estimated GFR 33; Globulin 2.4 g/dL (2.4-3.5); Glucose 104 mg/dL (83-110); Potassium 3.9 mmol/L (3.5-5.1); Protein, Total 4.5 g/dL (5.8-8.1); Sodium 133 mmol/L (136-145)
[2022-05-16 04:52] LABS: #Lymphocytes 1.5 thou/uL (1.20-3.40); #Monocytes 0.4 thou/uL (0.11-0.59); #Neutrophils 10.6 thou/uL (1.40-6.50); %Eosinophils 0.3 % (0.0-10.0); %Monocytes 3.5 % (0.0-10.0); %Neutrophils 84.2 % (42.0-75.0); Hemoglobin 9.6 g/dL (14.0-18.0); Mean Corpuscular HGB CONC 33.3 g/dL (32.0-36.0); Mean Corpuscular Hemoglobin 32.3 pg (27.0-31.0); Mean Corpuscular Volume 96.8 fL (78.0-98.0); Mean Platelet Volume 10.5 fL (7.4-10.4); Platelet Count 53 thou/uL (130-400); RBC Distribution Width 14.7 % (11.5-14.5); Red Blood Cell (RBC) Count 2.97 mill/uL (4.70-6.10); White Blood Cell (WBC) Count 12.6 thou/uL (4.8-10.8)
[2022-05-16] MEDS: Cefepime 1 GM in Sodium Chloride 0.9% 100 ML IVPB SCH ×2 (06:48→18:27)
[2022-05-16] MEDS: Senokot S 8.6-50 MG TAB PO SCH ×2 (08:23→20:24)
[2022-05-16] MEDS: predniSONE 20 MG TAB PO SCH (08:23)
[2022-05-16] MEDS: Polyethylene Glycol 3350 17 GM Packet PO SCH (08:23)
[2022-05-16] MEDS ORDERED: Non-Formulary Item 1 EACH (Esomeprazole Magnesium [Esomeprazole Magnesium] 20 MG Capsule. PO SCH (09:00)
[2022-05-16] MEDS ORDERED: ELTROMBOPAG OLAMINE 75 MG PO SCH ×2 (09:00)
[2022-05-16] MEDS: Artificial Tear Sol 15 ML BOT EA EYE PRN (20:25)
[2022-05-16 20:48] LABS: Vancomycin, Random 14.1 ug/mL (See Comment)
[2022-05-17] MEDS: Vancomycin HCl 750 MG in Sodium Chloride 0.9% 250 ML 250 ML IVPB SCH ×2 (00:16→23:47)
[2022-05-17] MEDS: HYDROcodone/Acetaminophen 10/325 mg Tablet PO PRN ×2 (00:21→08:30)
[2022-05-17] MEDS: Cefepime 1 GM in Sodium Chloride 0.9% 100 ML IVPB SCH ×2 (06:40→18:00)
[2022-05-17] MEDS: predniSONE 20 MG TAB PO SCH (08:32)
[2022-05-17] MEDS: Senokot S 8.6-50 MG TAB PO SCH ×2 (08:32→23:48)
[2022-05-17] MEDS: Polyethylene Glycol 3350 17 GM Packet PO SCH (08:33)
[2022-05-17 09:21] LABS: #Lymphocytes 1.8 thou/uL (1.20-3.40); #Monocytes 0.3 thou/uL (0.11-0.59); #Neutrophils 8.3 thou/uL (1.40-6.50); %Basophils 0.3 % (0.0-1.0); %Eosinophils 0.3 % (0.0-10.0); %Lymphocytes 17.4 % (21.0-51.0); %Monocytes 3.1 % (0.0-10.0); %Neutrophils 78.9 % (42.0-75.0); Hemoglobin 11.3 g/dL (14.0-18.0); Mean Platelet Volume 10.9 fL (7.4-10.4); Platelet Count 70 thou/uL (130-400); RBC Distribution Width 15.4 % (11.5-14.5); Red Blood Cell (RBC) Count 3.64 mill/uL (4.70-6.10); White Blood Cell (WBC) Count 10.5 thou/uL (4.8-10.8)
[2022-05-17 09:39] LABS: Anion Gap 14 mmol/L (10-20); BUN (Urea Nitrogen) 35 mg/dL (8.4-25.7); Calc. Creatinine Clearance 31 mL/min (70-130); Calcium 8.2 mg/dL (7.8-10.44); Carbon Dioxide 13 mmol/L (23-31); Chloride 109 mmol/L (98-107); Estimated GFR 36; Glucose 73 mg/dL (83-110); Potassium 4.4 mmol/L (3.5-5.1); Sodium 132 mmol/L (136-145)
[2022-05-17] MEDS ORDERED: oxyCODONE 5 MG TAB PO PRN (11:55)
[2022-05-17] MEDS: oxyCODONE 5 MG TAB PO PRN ×2 (15:23→23:48)
[2022-05-18] MEDS: Morphine 2 MG/ML VIAL SLOW IVP PRN ×2 (02:04→05:57)
[2022-05-18] MEDS ORDERED: Acetaminophen 325 MG TAB PO PRN (05:06)
[2022-05-18] MEDS ORDERED: Piperacillin/Tazobactam 3.375 GM in Sodium Chloride 0.9% 100 ML IVPB SCH ×3 (05:30→12:00)
[2022-05-18] MEDS ORDERED: VANCOMYCIN 1.25 GM/250 ML BAG 1.25 GM in Premix Bag 1 BAG IVPB SCH (05:30)
[2022-05-18] MEDS: Cefepime 1 GM in Sodium Chloride 0.9% 100 ML IVPB SCH ×2 (05:59→19:14)
[2022-05-18 06:05] LABS: Anion Gap 12 mmol/L (10-20); BUN (Urea Nitrogen) 33 mg/dL (8.4-25.7); Calc. Creatinine Clearance 31 mL/min (70-130); Calcium 8.1 mg/dL (7.8-10.44); Carbon Dioxide 17 mmol/L (23-31); Chloride 106 mmol/L (98-107); Estimated GFR 36; Glucose 75 mg/dL (83-110); Potassium 4.2 mmol/L (3.5-5.1); Sodium 131 mmol/L (136-145)
[2022-05-18 06:06] LABS: ALT (SGPT) 23 U/L (8-55); AST (SGOT) 33 U/L (5-34); Albumin 2.4 g/dL (3.4-4.8); Alkaline Phosphatase 403 U/L (40-110); Bilirubin, Direct 0.9 mg/dL (0.1-0.3); Bilirubin, Total 1.5 mg/dL (0.2-1.2); Mean Corpuscular HGB CONC 33.1 g/dL (32.0-36.0); Mean Corpuscular Hemoglobin 31.9 pg (27.0-31.0); Mean Corpuscular Volume 96.4 fL (78.0-98.0); Platelet Count 68 thou/uL (130-400); Red Blood Cell (RBC) Count 3.46 mill/uL (4.70-6.10); White Blood Cell (WBC) Count 10.2 thou/uL (4.8-10.8)
[2022-05-18 06:40] LABS: Band 33 % (5-11); Lymphocytes 6 % (21-51); MDiff Complete? YES; Monocytes 2 % (0-10); Neutrophil 59 % (42-75); Platelet Morphology Comment Appears Decreased
[2022-05-18 06:57] LABS: Bacteria/HPF None Seen HPF (None Seen); Bilirubin Negative (Negative); Blood, Urine Negative (Negative); Clarity Clear (Clear); Glucose, Urine (Dipstick) Normal (Negative); Ketone, Urine Negative (Negative); Leukocyte Negative Leu/uL (Negative); Nitrite Negative (Negative); Protein, Urine (Dipstick) 20 mg/dL (Neg-Trace); RBC/HPF 0-3 HPF (0-3); Specific Gravity, Urine 1.015 (1.002-1.036); Squamous Epithelial 0-3 HPF (0-3); Urine Culture Reflex No No; Urobilinogen Normal mg/dL (Less than 2); WBC/HPF 0-3 HPF (0-3); pH, Urine 5.5 (5.0-9.0)
[2022-05-18] MEDS: oxyCODONE 5 MG TAB PO PRN ×4 (07:43→23:16)
[2022-05-18] MEDS: Senokot S 8.6-50 MG TAB PO SCH ×2 (08:58→20:29)
[2022-05-18] MEDS: predniSONE 20 MG TAB PO SCH (08:58)
[2022-05-18] MEDS: Polyethylene Glycol 3350 17 GM Packet PO SCH (08:59)
[2022-05-18] MEDS: Artificial Tear Sol 15 ML BOT EA EYE PRN (16:06)
[2022-05-18 22:33] LABS: Vancomycin, Trough 17.1 ug/mL
[2022-05-18] MEDS: Vancomycin HCl 750 MG in Sodium Chloride 0.9% 250 ML 250 ML IVPB SCH (23:17)
[2022-05-18] MEDS: Lactase 9,000 UNIT CHEWABLE TAB PO PRN (23:31)
[2022-05-19] MEDS: oxyCODONE 5 MG TAB PO PRN ×5 (03:36→20:11)
[2022-05-19] MEDS: Cefepime 1 GM in Sodium Chloride 0.9% 100 ML IVPB SCH ×2 (05:45→17:12)
[2022-05-19 06:59] LABS: #Lymphocytes 1.5 thou/uL (1.20-3.40); #Monocytes 0.3 thou/uL (0.11-0.59); #Neutrophils 5.3 thou/uL (1.40-6.50); %Basophils 0.2 % (0.0-1.0); %Eosinophils 0.4 % (0.0-10.0); %Monocytes 4.5 % (0.0-10.0); Hemoglobin 8.6 g/dL (14.0-18.0); Mean Corpuscular HGB CONC 32.6 g/dL (32.0-36.0); Mean Corpuscular Hemoglobin 31.8 pg (27.0-31.0); Mean Corpuscular Volume 97.5 fL (78.0-98.0); Mean Platelet Volume 11.8 fL (7.4-10.4); Platelet Count 44 thou/uL (130-400); RBC Distribution Width 15.3 % (11.5-14.5); Red Blood Cell (RBC) Count 2.71 mill/uL (4.70-6.10); White Blood Cell (WBC) Count 7.1 thou/uL (4.8-10.8)
[2022-05-19 07:09] LABS: ALT (SGPT) 16 U/L (8-55); AST (SGOT) 20 U/L (5-34); Alkaline Phosphatase 272 U/L (40-110); Anion Gap 8 mmol/L (10-20); BUN (Urea Nitrogen) 30 mg/dL (8.4-25.7); Bilirubin, Total 0.7 mg/dL (0.2-1.2); Calc. Creatinine Clearance 33 mL/min (70-130); Calcium 7.8 mg/dL (7.8-10.44); Carbon Dioxide 22 mmol/L (23-31); Chloride 107 mmol/L (98-107); Estimated GFR 41; Globulin 2.4 g/dL (2.4-3.5); Glucose 110 mg/dL (83-110); Protein, Total 4.4 g/dL (5.8-8.1); Sodium 133 mmol/L (136-145)
[2022-05-19] MEDS: Lactase 9,000 UNIT CHEWABLE TAB PO PRN ×2 (07:51→17:05)
[2022-05-19] MEDS ORDERED: predniSONE 20 MG TAB PO SCH (08:30)
[2022-05-19] MEDS: Senokot S 8.6-50 MG TAB PO PRN (09:13)
[2022-05-19] MEDS: Polyethylene Glycol 3350 17 GM Packet PO SCH (09:13)
[2022-05-19] MEDS: Senokot S 8.6-50 MG TAB PO SCH ×2 (09:19→20:11)
[2022-05-19 14:09] VITALS: BMI 19.7
[2022-05-19] MEDS: Artificial Tear Sol 15 ML BOT EA EYE PRN (20:12)
[2022-05-20] MEDS: oxyCODONE 5 MG TAB PO PRN ×5 (00:02→23:19)
[2022-05-20] MEDS: Vancomycin HCl 750 MG in Sodium Chloride 0.9% 250 ML 250 ML IVPB SCH ×2 (00:03→23:21)
[2022-05-20] MEDS: Cefepime 1 GM in Sodium Chloride 0.9% 100 ML IVPB SCH ×2 (05:01→17:07)
[2022-05-20] MEDS: Morphine 2 MG/ML VIAL SLOW IVP PRN (05:03)
[2022-05-20 07:27] LABS: ALT (SGPT) 19 U/L (8-55); AST (SGOT) 32 U/L (5-34); Alkaline Phosphatase 368 U/L (40-110); Anion Gap 9 mmol/L (10-20); BUN (Urea Nitrogen) 31 mg/dL (8.4-25.7); Bilirubin, Total 1.4 mg/dL (0.2-1.2); Calc. Creatinine Clearance 36 mL/min (70-130); Calcium 7.7 mg/dL (7.8-10.44); Carbon Dioxide 21 mmol/L (23-31); Chloride 106 mmol/L (98-107); Estimated GFR 45; Globulin 2.4 g/dL (2.4-3.5); Glucose 86 mg/dL (83-110); Potassium 3.9 mmol/L (3.5-5.1); Protein, Total 4.4 g/dL (5.8-8.1); Sodium 132 mmol/L (136-145)
[2022-05-20] MEDS ORDERED: Iopamidol 30 ML ONE (11:35)
[2022-05-20] MEDS ORDERED: Lidocaine 1% PF 5 ML VIAL ONE (12:04)
[2022-05-20] MEDS ORDERED: PROPOFOL 200 MG/20 ML VIAL ONE (12:04)
[2022-05-20] MEDS ORDERED: ePHEDrine 50 MG/ML VIAL ONE (12:04)
[2022-05-20] MEDS ORDERED: Ondansetron PF 4 MG/2 ML Vial ONE (12:04)
[2022-05-20] MEDS ORDERED: Dexamethasone 20 MG/5 ML VIAL ONE (12:04)
[2022-05-20] MEDS ORDERED: Promethazine HCl 25 MG/ML VIAL IVPB PRN (12:50)
[2022-05-20] MEDS ORDERED: Ondansetron HCl/PF 4 MG/2 ML Vial IVP PRN (12:50)
[2022-05-20] MEDS ORDERED: Promethazine HCl 25 MG/ML VIAL IM PRN (12:50)
[2022-05-20] MEDS ORDERED: Fentanyl 100 MCG/2 ML VIAL ONE (13:41)
[2022-05-20] MEDS: Polyethylene Glycol 3350 17 GM Packet PO SCH (14:17)
[2022-05-20] MEDS: Senokot S 8.6-50 MG TAB PO SCH ×2 (14:17→20:25)
[2022-05-20] MEDS: predniSONE 20 MG TAB PO SCH (14:17)
[2022-05-20 19:58] VITALS: TEMP 97.9
[2022-05-20] MEDS: Artificial Tear Sol 15 ML BOT EA EYE PRN (20:25)
[2022-05-20 22:35] LABS: Vancomycin, Trough 15.4 ug/mL
[2022-05-21] MEDS: oxyCODONE 5 MG TAB PO PRN ×3 (03:22→11:32)
[2022-05-21] MEDS: Cefepime 1 GM in Sodium Chloride 0.9% 100 ML IVPB SCH (05:41)
[2022-05-21] MEDS: Senokot S 8.6-50 MG TAB PO PRN (05:42)
[2022-05-21 06:40] LABS: #Lymphocytes 2.3 thou/uL (1.20-3.40); #Monocytes 0.2 thou/uL (0.11-0.59); #Neutrophils 3.6 thou/uL (1.40-6.50); %Basophils 0.2 % (0.0-1.0); %Eosinophils 0.1 % (0.0-10.0); %Lymphocytes 37.4 % (21.0-51.0); %Monocytes 3.1 % (0.0-10.0); %Neutrophils 59.2 % (42.0-75.0); Hemoglobin 9.3 g/dL (14.0-18.0); Mean Corpuscular HGB CONC 32.7 g/dL (32.0-36.0); Mean Corpuscular Hemoglobin 31.7 pg (27.0-31.0); Mean Corpuscular Volume 96.7 fL (78.0-98.0); Mean Platelet Volume 11.1 fL (7.4-10.4); Platelet Count 54 thou/uL (130-400); Red Blood Cell (RBC) Count 2.94 mill/uL (4.70-6.10); White Blood Cell (WBC) Count 6.1 thou/uL (4.8-10.8)
[2022-05-21 06:55] LABS: ALT (SGPT) 23 U/L (8-55); AST (SGOT) 27 U/L (5-34); Albumin 2.1 g/dL (3.4-4.8); Alkaline Phosphatase 410 U/L (40-110); Anion Gap 9 mmol/L (10-20); BUN (Urea Nitrogen) 28 mg/dL (8.4-25.7); Bilirubin, Total 1.1 mg/dL (0.2-1.2); Calc. Creatinine Clearance 47 mL/min (70-130); Calcium 7.8 mg/dL (7.8-10.44); Carbon Dioxide 20 mmol/L (23-31); Chloride 107 mmol/L (98-107); Estimated GFR 61; Globulin 2.5 g/dL (2.4-3.5); Glucose 108 mg/dL (83-110); Potassium 4.1 mmol/L (3.5-5.1); Protein, Total 4.6 g/dL (5.8-8.1); Sodium 132 mmol/L (136-145)
[2022-05-21] MEDS: Lactase 9,000 UNIT CHEWABLE TAB PO PRN (07:12)
[2022-05-21] MEDS: Senokot S 8.6-50 MG TAB PO SCH (07:15)
[2022-05-21 09:10] VITALS: BP 128/71
[2022-05-21] MEDS ORDERED: D5W-AA 4.25% with LYTES 1,000 ML IV SCH (10:00)
[2022-05-21] MEDS: Polyethylene Glycol 3350 17 GM Packet PO SCH (10:08)
[2022-05-21] MEDS: predniSONE 20 MG TAB PO SCH (10:08)
== END 2022-05-21 12:35 | disposition home or self-care (01) | DRG 659 ==
LOC: ERS 19:34 → 2NO 22:56 → IMCU/EMU 05-14 18:05 → MSONC 05-18 16:29
PROVIDERS: ADMIT Family Medicine; ATTEND Family Medicine
PROC: 3E03329 Introduction of Other Anti-infective into Peripheral Vein, Percutaneous Approach (ICD-10-PCS; 2022-05-13)
PROC: 0T778DZ Dilation of Left Ureter with Intraluminal Device, Via Natural or Artificial Opening Endoscopic (ICD-10-PCS; principal; 2022-05-20)
PROC: 0TPD8DZ Removal of Intraluminal Device from Urethra, Via Natural or Artificial Opening Endoscopic (ICD-10-PCS; 2022-05-20)
PROC: BT1F1ZZ Fluoroscopy of Left Kidney, Ureter and Bladder using Low Osmolar Contrast (ICD-10-PCS; 2022-05-20)
DX: T83.193A Other mechanical complication of other urinary stent, initial encounter (principal); A41.9 Sepsis, unspecified organism; K83.1 Obstruction of bile duct; E87.1 Hypo-osmolality and hyponatremia; Z68.1 Body mass index [BMI] 19.9 or less, adult; I48.92 Unspecified atrial flutter; N13.39 Other hydronephrosis; C24.0 Malignant neoplasm of extrahepatic bile duct; E44.0 Moderate protein-calorie malnutrition; Z20.822 Contact with and (suspected) exposure to COVID-19; I10 Essential (primary) hypertension; K21.9 Gastro-esophageal reflux disease without esophagitis; D69.6 Thrombocytopenia, unspecified; D64.9 Anemia, unspecified; R77.8 Other specified abnormalities of plasma proteins; R79.89 Other specified abnormal findings of blood chemistry; Y83.1 Surgical operation with implant of artificial internal device as the cause of abnormal reaction of the patient, or of later complication, without mention of misadventure at the time of the procedure; G89.29 Other chronic pain; M54.9 Dorsalgia, unspecified; M54.50 Low back pain, unspecified; Z60.2 Problems related to living alone; I48.0 Paroxysmal atrial fibrillation; Z88.6 Allergy status to analgesic agent; Z88.8 Allergy status to other drugs, medicaments and biological substances; Z79.899 Other long term (current) drug therapy; Z79.52 Long term (current) use of systemic steroids; Z90.89 Acquired absence of other organs; Z90.49 Acquired absence of other specified parts of digestive tract; Z85.09 Personal history of malignant neoplasm of other digestive organs
CPT/HCPCS: 36415; 36416; 70450; 71045; 74176; 74420; 80048; 80053; 80076; 80202; 81001; 81003; 82553; 83605; 83930; 83935; 84300; 84484; 85025; 87040; 87086; 93005; 93010; 93306; 96374; 97139; C2617; J0692; J1100; J1642; J2270; J2405; J2543; J2704; J3010; J3370; J3490; J7050; J7512; J7999; Q9967; U0003; U0005

== ENCOUNTER 2022-05-25 15:52 | Emergency (ER) | payer MEDICARE, OTHER ==
[~2022-05-25 15:52] MED LIST: Iopamidol-370 76% 500 ML 1 ML ONE
[2022-05-25 16:25] LABS: #Lymphocytes 1.2 thou/uL (1.20-3.40); #Monocytes 0.4 thou/uL (0.11-0.59); #Neutrophils 4.2 thou/uL (1.40-6.50); %Eosinophils 0.3 % (0.0-10.0); %Lymphocytes 20.6 % (21.0-51.0); %Monocytes 6.7 % (0.0-10.0); %Neutrophils 72.3 % (42.0-75.0); Hemoglobin 10.5 g/dL (14.0-18.0); Mean Corpuscular Hemoglobin 31.6 pg (27.0-31.0); Mean Corpuscular Volume 98.7 fL (78.0-98.0); Mean Platelet Volume 9.8 fL (7.4-10.4); Platelet Count 78 thou/uL (130-400); RBC Distribution Width 15.6 % (11.5-14.5); Red Blood Cell (RBC) Count 3.33 mill/uL (4.70-6.10); White Blood Cell (WBC) Count 5.8 thou/uL (4.8-10.8)
[2022-05-25 16:51] LABS: ALT (SGPT) 87 U/L (8-55); AST (SGOT) 95 U/L (5-34); Albumin 2.6 g/dL (3.4-4.8); Alkaline Phosphatase 773 U/L (40-110); Anion Gap 17 mmol/L (10-20); BUN (Urea Nitrogen) 17 mg/dL (8.4-25.7); Bilirubin, Total 7.3 mg/dL (0.2-1.2); Calc. Creatinine Clearance 0 mL/min (70-130); Calcium 8.2 mg/dL (7.8-10.44); Carbon Dioxide 17 mmol/L (23-31); Chloride 102 mmol/L (98-107); Estimated GFR 67; Globulin 2.9 g/dL (2.4-3.5); Glucose 77 mg/dL (83-110); Lipase 5 U/L (8-78); Magnesium 1.7 mg/dL (1.6-2.6); Potassium 3.8 mmol/L (3.5-5.1); Protein, Total 5.5 g/dL (5.8-8.1); Sodium 132 mmol/L (136-145)
[2022-05-25] MEDS ORDERED: Ondansetron PF 4 MG/2 ML Vial ONE (19:25)
[2022-05-25 19:48] LABS: Bacteria/HPF 3+ HPF (None Seen); Bilirubin 2+ (Negative); Blood, Urine 3+ (Negative); Clarity Turbid (Clear); Glucose, Urine (Dipstick) Normal (Negative); Ketone, Urine 10 mg/dL (Negative); Leukocyte 250 Leu/uL (Negative); Nitrite Negative (Negative); Protein, Urine (Dipstick) 100 mg/dL (Neg-Trace); RBC/HPF 21-50 HPF (0-3); Renal Epithelial 0-3 HPF (None Seen); Specific Gravity, Urine 1.023 (1.002-1.036); Squamous Epithelial 0-3 HPF (0-3); Transitional Epithelial 0-3 HPF (None Seen); pH, Urine 5.5 (5.0-9.0)
[2022-05-25 19:55] LABS: Calcium Oxalate Crystals Rare HPF (None Seen)
[2022-05-25 20:02] LABS: SARS-CoV-2 NAA Rapid Test Not Detected (NotDetected)
[2022-05-25] MEDS ORDERED: cefTRIAXone\\ROCEPHIN 2 GM VIAL ONE (22:00)
[2022-05-25] MEDS ORDERED: HYDROcodone/Acetaminophen 10/325 mg Tablet ONE (22:03)
[2022-05-26] MEDS ORDERED: HYDROcodone/Acetaminophen 10/325 mg Tablet ONE (08:03)
== END 2022-05-26 09:09 | disposition short-term general hospital (02) ==
LOC: ERS 15:52
DX: C78.89 Secondary malignant neoplasm of other digestive organs (principal); K83.1 Obstruction of bile duct; E80.6 Other disorders of bilirubin metabolism; N30.00 Acute cystitis without hematuria; Z20.822 Contact with and (suspected) exposure to COVID-19
CPT/HCPCS: 71045; 74177; 80053; 83690; 83735; 83880; 84484; 85025; 93005; 96361; 96365; 96375; 99285; U0002; 36415; 81003; 81015; J0696; J2405; Q9967